=== PATIENT | female | born 1950 | race Caucasian/White ===

== ENCOUNTER 2017-01-24 09:15 | Emergency (ER) | payer MEDICARE, OTHER ==
--- NOTE | ~2017-01-24 | ER ---
PATIENT'S NAME: SOLO MAGANA [facility] AGE: 66 Y [address] ROOM: [place] [address] LOCATION: [facility] ADMIT DATE: 01/24/2017 ER/Outpatient Report DISCHARGE DATE: 01/24/2017 FAMILY PHYSICIAN: Perez Nieto MD ATTENDING PHYSICIAN: Curt Carrillo Time of Arrival: 0915 hours. Time of Evaluation: 0920 hours. CHIEF COMPLAINT: Rash. HISTORY OF PRESENT ILLNESS: The patient is a 66-year-old female who presents to the emergency department today with chief complaint of rash. She reports this started 1 day prior to arrival in both of her arms. She denies any fevers or chills. No nausea or vomiting. No diarrhea or constipation. No chest pain. No shortness of breath. She denies any new soaps or detergents. Denies any other exposures. PAST MEDICAL HISTORY: Hypertension, hypothyroid. PAST SURGICAL HISTORY: Hysterectomy. SOCIAL HISTORY: The patient denies any tobacco, alcohol, or illicit drug use. ALLERGIES: NO KNOWN DRUG ALLERGIES. MEDICATIONS: Please see list. PRIMARY CARE DOCTOR: Dr. Nieto. REVIEW OF SYSTEMS: All systems are reviewed by myself and are negative with the exception of those discussed in the HPI and past medical history. PHYSICAL EXAMINATION: VITAL SIGNS: Weight 119 kg, blood pressure 197/86, pulse 71, respiratory rate 16, temperature 96.7, oxygen saturation 96% on room air. GENERAL: The patient is a 66-year-old female, well developed, obese, in no PATIENT'S NAME: SOLO MAGANA [facility] AGE: 66 Y [address] ROOM: [place] [address] LOCATION: [facility] ADMIT DATE: 01/24/2017 ER/Outpatient Report DISCHARGE DATE: 01/24/2017 FAMILY PHYSICIAN: Perez Nieto MD ATTENDING PHYSICIAN: Curt Carrillo acute distress. HEENT: Normocephalic, atraumatic. Pupils are equal, round, and reactive to light. Oropharynx is clear. NECK: Supple. There is no nuchal rigidity. CARDIOVASCULAR: Regular rate and rhythm. No murmurs, rubs, or gallops. LUNGS: Clear to auscultation bilaterally. No wheezes, rales, or rhonchi. ABDOMEN: Soft, nontender, and nondistended. No rebound, rigidity, or guarding. MUSCULOSKELETAL: The patient moves all 4 extremities. SKIN: The patient has wheals and hives on bilateral upper extremities. They are blanching. There is no evidence of rash on palms or soles. LABORATORY DATA AND X-RAYS: None. IMPRESSION: 1. Allergic reaction with rash. 2. Initial visit. EMERGENCY DEPARTMENT COURSE: The patient was brought back to the examination room. Seen and evaluated by myself. History and physical was performed as described above. I have discussed the results of history and physical with the patient. The patient was given 125 mg of Solu-Medrol IM as well as 50 mg of Benadryl IM. She is observed here in the emergency department. Her symptoms have improved. I have discussed following up with the patient's primary care doctor in 2 to 3 days for re-evaluation. I have written a prescription for prednisone for home. I have discussed return to care instructions including worsening symptoms or any other concerns to return to the emergency department as soon as possible. The patient is agreeable without further questions. DISPOSITION: The patient discharged home in good condition. DO GERALD ORTIZ/celia /[id number] d: 01/24/175 t: 01/27/17 0652, OUTPATIENT REPORT
== END 2017-01-24 10:33 | disposition disaster alternative care site (69) ==
LOC: GMED 09:15
DX: T78.40XA Allergy, unspecified, initial encounter (principal); I10 Essential (primary) hypertension; E03.9 Hypothyroidism, unspecified; E66.9 Obesity, unspecified; Z90.710 Acquired absence of both cervix and uterus; Z79.899 Other long term (current) drug therapy
CPT/HCPCS: J1200; J2930

== ENCOUNTER 2017-03-19 19:27 | Observation (INO) | payer MEDICARE, OTHER ==
[~2017-03-19] VITALS: Ht 157.5 cm; Wt 125.2 kg
--- NOTE | ~2017-03-19 | DS ---
PATIENT'S NAME: SOLO MAGANA [facility] AGE: 66 Y [address] ROOM: [place] [id number] LOCATION: [facility] ADMIT DATE: 03/19/2017 Discharge Summary DISCHARGE DATE: 03/21/2017 FAMILY PHYSICIAN: Perez Nieto MD ATTENDING PHYSICIAN: Eloy New V PRIMARY DIAGNOSES: 1. Mechanical fall. 2. Proximal right humerus fracture. 3. Right knee medial collateral ligament sprain. 4. Essential hypertension. 5. Hypothyroidism. 6. Morbid obesity. OPERATIONS/PROCEDURES: None. HISTORY OF PRESENTING ILLNESS/REASON FOR ADMISSION: Please refer to the H and P dictated on 03/19/2017. HOSPITAL COURSE: The patient was admitted to the hospital as noted above with a presumptive diagnosis of right humerus fracture after a fall. She was seen and evaluated in the emergency room, and Orthopedics consultation was requested. Subsequently, she was admitted to the hospitalist service. Orthopedics was consulted after she arrived to the floor. Pain control was obtained with oral Percocet. She was placed into a right shoulder immobilizer and tolerated that well. She was hemodynamically stable over the course of her hospital stay. Dr. Inman did ultimately arrive and evaluate the patient and recommended nonoperative management. The patient received physical therapy, and by the third day of her hospital stay, it was felt she would be stable enough for discharge to home with plans for close clinical followup with her primary care provider, Dr. Nieto, and outpatient followup with Orthopedic Surgery. DISCHARGE INSTRUCTIONS: DIET: Regular as tolerated. ACTIVITY: As tolerated. Observe strict fall precautions. She will have the right arm splint and coaptation splint in place at all times. MEDICATIONS: 1. Enalapril 20 mg p.o. daily. 2. Colace 100 mg p.o. t.i.d. PATIENT'S NAME: SOLO MAGANA [facility] AGE: 66 Y [address] ROOM: [address] [address] LOCATION: [facility] ADMIT DATE: 03/19/2017 Discharge Summary DISCHARGE DATE: 03/21/2017 FAMILY PHYSICIAN: Perez Nieto MD ATTENDING PHYSICIAN: Eloy New V 3. MiraLAX 17 g p.o. daily. 4. Senna 2 tablets p.o. q.h.s. 5. Levothyroxine 137 mcg p.o. daily. 6. Percocet 5/325 one to two tabs p.o. q.4 hours p.r.n. pain. FOLLOWUP: She will follow up with Dr. Nieto in 3 to 5 days. She will follow up with Dr. Inman at the Orthopedics office in 1 week. She will have outpatient physical therapy. CONDITION ON DISCHARGE: Good. Total time spent on discharge process was 35 minutes. MD VIRAL TAYLOR/celia /[id number] d: 03/22/17 0328 t: 03/24/17 1433, DISCHARGE SUMMARY
--- NOTE | ~2017-03-19 | CON ---
PATIENT'S NAME: SOLO MAGANA [facility] AGE: 66 Y [address] ROOM: [place] [address] LOCATION: [facility] ADMIT DATE: 03/19/2017 Consultation DISCHARGE DATE: FAMILY PHYSICIAN: ALIYA ALMANZAR MD ATTENDING PHYSICIAN: MARCELINO JOYCE V REFERRING PHYSICIAN: STEVE CANO DO CHIEF COMPLAINT: 1. Right shoulder pain. 2. Right knee pain. HISTORY OF PRESENT ILLNESS: Solo is a 66-year-old female who had a mechanical fall after tripping in a hole, injuring her right proximal humerus and right knee. She was seen emergency room and evaluated found to have uncontrolled hypertension. PAST MEDICAL HISTORY: Reviewed and includes essential hypertension, hypothyroidism. SOCIAL HISTORY: No tobacco, alcohol, or recreational drugs. CURRENT MEDICATIONS: Reviewed, ADRY inhibitor and Synthroid. FAMILY HISTORY: Noncontributory. REVIEW OF SYSTEMS: Constipation. PHYSICAL EXAMINATION: GENERAL: The patient is alert and oriented x3. No acute distress. HEENT: Normocephalic, atraumatic. NECK: Supple. Trachea midline. VITAL SIGNS: Blood pressure has been elevated. Currently monitored by the hospitalist. Heart rates in the 70s, respiratory rate 18, temp afebrile, sat 94% on room air. EXTREMITIES: She is sitting comfortably in a chair with family at the bedside. She has normal sensation upon palpation in the axillary, median, radial, and ulnar nerve distribution. She is in a coaptation splint. To her right upper extremity, there are no open lesions or wounds or evidence open fracture. There is obvious swelling hematoma as can be expected. Her BMI is elevated. She has history of chronic bilateral knee pain. Using a walker and a wheelchair for long distances. She has seen her primary care and had injections and treatment for arthritis and told she may need knee PATIENT'S NAME: SOLO MAGANA [facility] AGE: 66 Y [address] ROOM: [place] [address] LOCATION: [facility] ADMIT DATE: 03/19/2017 Consultation DISCHARGE DATE: FAMILY PHYSICIAN: ALIYA ALMANZAR MD ATTENDING PHYSICIAN: MARCELINO JOYCE V replacements. On exam of her right knee, she has tenderness over MCL. With grade 1 sprain of the MCL. She has intact ligament with varus stressing. There is no large knee effusion. There are no abrasions. ABDOMEN: Soft. Obese. Nontender. She is tolerating p.o. She moves her left upper extremity, left lower extremity and right lower extremity at the ankle, knee, and hips without pain, other than the right MCL. IMPRESSION: 1. Mechanical fall with right proximal humerus fracture. X-ray show that is an acceptable alignment should heal without surgical intervention. We discussed the risks, benefits, treatment options with surgical versus nonsurgical. The union rate is not much better with surgery which can invite infection and neurovascular injury. She understands if the bone becomes displaced further, we may change our recommendation from nonoperative to operative. 2. Medial collateral ligament sprain. Recommend T scope brace. She may be weightbearing as tolerated with ambulation and non-weightbearing obviously with the right upper extremity. She will keep her coaptation splint in place. She understands she will develop some swelling, stiffness at the shoulder, elbow, and wrist. She will be continued to monitor for her medical comorbidities with pain control, hypertension, hypothyroidism by the hospitalist. Once she has found p.o. pain control adequate and meet short-term goals safely, she may be discharged home. She has a daughter coming from [place] who will be 29/03 to assist her. I will see her in the office in 1 week with repeat x-rays. STEVE CANO DO PH/modl /[id number] d: 03/20/17 1855 t: 03/29/17 1453, CONSULTATION REPORT
--- NOTE | ~2017-03-19 | HP ---
PATIENT'S NAME: SOLO MAGANA [facility] AGE: 66 Y [address] ROOM: [place] [address] LOCATION: [facility] ADMIT DATE: 03/19/2017 History & Physical DISCHARGE DATE: FAMILY PHYSICIAN: ALIYA ALMANZAR MD ATTENDING PHYSICIAN: MARCELINO JOYCE V DATE OF SERVICE: CHIEF COMPLAINT: Mechanical fall. HISTORY OF PRESENT ILLNESS: The patient is a 66-year-old female with a past medical history of hypothyroidism and essential hypertension, who sustained a mechanical fall at her home earlier today. She was taken to the ER where she was found to have a right proximal humerus fracture. The patient was in significant amount of pain, which improved with Dilaudid. She was also quite hypertensive with systolics over 200s. The patient will be seen by Orthopedics in the morning, and an observation/pain control admission was requested. At this point, the patient still reports considerable amount of pain. She denies any shortness of breath, nausea, vomiting, palpitations, or diaphoresis. Her fall was purely mechanical. REVIEW OF SYSTEMS: All systems have been reviewed and are negative aside from pertinent positives mentioned above. PAST MEDICAL HISTORY: 1. Essential hypertension. 2. Hypothyroidism. SOCIAL HISTORY: The patient has a very distant and non-pertinent history of tobacco use. No other ongoing toxic habits. CURRENT MEDICATIONS: 1. ADRY inhibitor. 2. Synthroid. FAMILY HISTORY: Reviewed and is noncontributory due to known underlying etiology for her presentation. PHYSICAL EXAMINATION: PATIENT'S NAME: SOLO MAGANA [facility] AGE: 66 Y [address] ROOM: [place] [address] LOCATION: [facility] ADMIT DATE: 03/19/2017 History & Physical DISCHARGE DATE: FAMILY PHYSICIAN: ALIYA ALMANZAR MD ATTENDING PHYSICIAN: MARCELINO JOYCE V VITAL SIGNS: At this point, her blood pressure is 185/84, heart rate is 74, saturating 95% on 2 L nasal cannula, afebrile, respirations are 16. GENERAL: A morbidly obese, middle-aged female, in no acute distress. NEUROLOGIC: Nonfocal. EYES: Show pupils are equal and reactive to light. LYMPHATIC: Shows no cervical lymphadenopathy. ENDOCRINE: Shows no thyromegaly. LUNGS: Clear to auscultation. HEART: Rate is regular. No appreciable murmurs, gallops, or rubs. GI: Abdomen is soft, nontender, nondistended. : No costovertebral angle tenderness. VASCULAR: 2+ pedal pulses. MUSCULOSKELETAL: Deferred. SKIN: Warm and dry. PSYCHIATRIC: Appropriate mood, cognition, affect. DIAGNOSTIC DATA: Review of studies show a right shoulder x-ray demonstrating proximal right humerus fracture. Chest x-ray shows diminished inspiratory effort with crowding of lung diamond. Lab results are unremarkable. ASSESSMENT AND PLAN: This is a 66-year-old female, who is admitted for pain control and blood pressure control. Individual problems to be addressed: 1. Pain control. We will provide the patient with morphine for severe pain and Percocet for moderate pain. We will also provide her with a bowel regimen given high opioid dosage. 2. Accelerated hypertension. We will restart her ADRY inhibitors and add p.r.n. hydralazine if her blood pressure does not improve with pain control. 3. Hypothyroidism. We will continue her on Synthroid. 4. Humerus fracture. The patient will be seen by Dr. Inman in Orthopedics in the morning. 5. Additional management will depend on clinical course. Time dedicated to the patient's encounter is 25 minutes. MD CASANDRA SCHULZ/celia /[id number] D: [id number] T: [id number] HISTORY & PHYSICAL
--- NOTE | ~2017-03-19 | ER ---
PATIENT'S NAME: SOLO ADEN [facility] AGE: 66 Y [address] ROOM: [place] [address] LOCATION: [facility] ADMIT DATE: 03/19/2017 ER/Outpatient Report DISCHARGE DATE: FAMILY PHYSICIAN: ALIYA ALMANZAR MD ATTENDING PHYSICIAN: MARCELINO JOYCE V CHIEF COMPLAINT: Fall. HISTORY OF PRESENT ILLNESS: Ms. Aden was walking through yard and inadvertently fell in a hole approximately 3 feet deep. She fell slightly on the right side. She had significant pain in her right shoulder and right knee region. She has been nonambulatory. She received fentanyl prior to arrival by EMS. She states there are no other acute issues. She denies loss of consciousness, but has diffuse pain everywhere in her back. No other acute issues at this time. The onset was approximately 1 hour prior to arrival. PAST MEDICAL HISTORY: Documented on the record and reviewed by me. SOCIAL HISTORY: Documented on the record and reviewed by me. MEDICATIONS: Documented on the record and reviewed by me. ALLERGIES: DOCUMENTED ON THE RECORD AND REVIEWED BY ME. REVIEW OF SYSTEMS: All systems reviewed and negative except as noted in the HPI. PHYSICAL EXAMINATION: VITAL SIGNS: Blood pressure 170/74, pulse 75, respiratory rate 22, temperature 98.9, SpO2 is 95% on room air. Pain is rated at 10/10. GENERAL: Age appropriate female, in obvious pain. No respiratory distress. Recumbent on a backboard without a C-collar. NEURO: The patient is awake and alert. GCS 15. Difficulty moving right upper extremity secondary to pain, otherwise neurovascularly intact. No focal deficits otherwise. HEENT: Normocephalic, atraumatic. Eyes are PERRL. Oropharynx clear. NECK: Supple anteriorly. Trachea is midline. CHEST: Heart is regular rate and rhythm. Tenderness in the right shoulder region. Poorly localizable. PATIENT'S NAME: SOLO ADEN [facility] AGE: 66 Y [address] ROOM: [place] [address] LOCATION: [facility] ADMIT DATE: 03/19/2017 ER/Outpatient Report DISCHARGE DATE: FAMILY PHYSICIAN: ALIYA ALMANZAR MD ATTENDING PHYSICIAN: MARCELINO JOYCE V LUNGS: Clear to auscultation bilateral. No rhonchi, wheezes, or rales. ABDOMEN: Obese, soft, nontender, nondistended. No masses, rebound or guarding. BACK: Notable for diffuse spinal and paraspinal tenderness. No focal findings. The patient has strong gluteal squeeze. No abrasions or contusions appreciated. EXTREMITIES: Right upper extremity is exquisitely tender in the region of the proximal humerus. The patient is minimally able to comply with instruction to activate the deltoid likely secondary to pain. It appears deltoid does fire. No obvious deformities in the arm, otherwise neurovascularly intact. No pain with palpation of the distal humerus, elbow, forearm, wrist or hand. The right lower extremity is notable for some tenderness over the anteromedial knee particularly distally. No appreciated joint effusion. No patellar subluxation. No tenderness at the joint line. Pain limits the intensive examination, but leg is otherwise neurovascularly intact. Body habitus makes exam very difficult. No obvious laxity. Left lower extremity and left upper extremities unremarkable. SKIN: Appears to be grossly intact. LABORATORY DATA AND X-RAYS: Head CT and spinal CTs are unremarkable. Plain films of the right shoulder reveal a subtrochanteric fracture. Knee films are unremarkable. Labs: CMS without appreciable abnormality other than a glucose of 125. Creatinine is 0.9. CMS with no elevation of white count. Hemoglobin and platelets within normal limits. INR is 1. IMPRESSION: 1. Mechanical fall. 2. Right proximal humerus fracture below the surgical neck. 3. Contusion to the right knee. 4. Inability to ambulate. EMERGENCY DEPARTMENT COURSE: The patient was seen and evaluated. She is given a trauma evaluation from physical exam standpoint. Imaging as warranted and noted above. With her spine cleared, we were able to sit her up. We were able to immobilize her neck as best as possible with towel rolls secondary to the patient's body habitus. We could not fit a C-collar on her. She was feeling much better. Dilaudid controlled her pain. I was able to apply a coaptation splint to the right arm and put her in a shoulder immobilizer. She was feeling much better at that time. Blood pressures have been hypertensive, but improved markedly when she was able to relax. I discussed the case with Dr. Inman, on-call orthopedist, and he will be willing to see her in the hospital if needed, otherwise close followup. The patient requires a cane to ambulate and has PATIENT'S NAME: SOLO ADEN [facility] AGE: 66 Y [address] ROOM: [id number] [place] [id number] LOCATION: [facility] ADMIT DATE: 03/19/2017 ER/Outpatient Report DISCHARGE DATE: FAMILY PHYSICIAN: ALIYA ALMANZAR MD ATTENDING PHYSICIAN: MARCELINO JOYCE V multiple stairs at home and currently cannot stand secondary to pain and contusions and would not be stable using a cane with only one arm. For these reasons, we will admit her to the Hospitalist Service for observation in the setting of new fracture and inability to safely ambulate and navigate her home. MD SHALOM DON/celia /[id number] d: 03/20/17 0648 t: 03/23/17 1245, OUTPATIENT REPORT
[2017-03-19 20:19] LABS: BASOPHIL % 0.3 %; EOSINOPHIL # 0.1 K/uL (0.0-0.5); EOSINOPHIL % 1.8 %; HEMATOCRIT 37.4 % (33.0-46.0); HEMOGLOBIN 12.2 g/dL (10.0-15.0); IMMATURE GRANULOCYTE # 0.1 K/uL (0.0-0.3); IMMATURE GRANULOCYTE % 0.8 %; LYMPHOCYTE # 1.3 K/uL (0.8-4.0); LYMPHOCYTE % 16.5 %; MCH 27.5 pg (27.0-34.0); MCHC 32.6 gm/dL (32.0-36.5); MCV 84.2 fl (83.0-98.0); MONOCYTE # 0.4 K/uL (0.0-1.0); MONOCYTE % 5.5 %; MPV 9.7 fl (9.4-12.4); NEUTROPHIL # (ANC) 5.8 K/uL (1.8-7.8); NEUTROPHIL % 75.1 %; NRBC % 0 /100WBC (0-0.00); PLATELET COUNT 183 K/uL (150-450); RBC 4.44 M/uL (3.50-5.50); RDW-CV 14.2 % (11.9-14.6); WBC 7.7 K/uL (4.0-11.0)
[2017-03-19 20:29] LABS: INR - (THERAPEUTIC) 1.02 (0.92-1.07); PROTIME 10.7 SECONDS (9.8-11.4); PTT 27 SECONDS (25-32)
[2017-03-19 20:39] LABS: ALBUMIN 3.4 gm/dL (3.5-5.0); ANION GAP 12.9 (10.0-19.0); CALCIUM 8.3 mg/dL (8.5-10.5); CREATININE 0.9 mg/dL (0.5-1.1); POTASSIUM 3.9 mMol/L (3.7-5.1); TOTAL BILIRUBIN 0.4 mg/dL (0.0-1.5); TOTAL PROTEIN 6.7 g/dL (6.0-8.4)
[2017-03-20] MEDS ORDERED: VASOTEC20 MG PO (01:09)
[2017-03-20] MEDS ORDERED: LEVOTHROID (S137 MCG PO (01:09)
--- NOTE | 2017-03-20 04:30 | NUR ---
Patient to ER per EMS after falling in back yard. Fracture to right humerus. Hypertensive on admit. Pressures 180/80s on arrival to PCU. Hydralizine given. MSU/3N status. Immobilizer to right arm/shoulder. Percocet given for discomfort with relief noted. Patient up to bathroom and chair with 1-2 assist. at bedside.
--- NOTE | 2017-03-20 17:30 | NUR ---
Significant Event: VSS AND RA. 2 TABS PERCOCET AT 0730, 1300, AND [address]IN CONTROL. DR. CANO CONSULTED AND UP TO SEE THIS AFTERNOON; TO CONTINUE WITH RT)ARM SLING AND IMMOBILIZER & ORDER FOR RT)KNEE MCL BRACE-RN CLINICIAN REP UP TO FIT AND PLACE. VOIDS WITH ADEQUATE UOP. ENCOURAGED IS. UP WITH 1A. REPOSITIONED Q2H. Follow up: CONTINUE PLAN OF CARE; PAIN CONTROL.
--- NOTE | 2017-03-21 05:29 | NUR ---
Significant Event: PERCOCET 2 TABS X2 FOR PAIN. UP WITH ASSIST BY FAMILY TO BR. ICE TO SHOULDER AND KNEE NEEDED. DID C/O R) WRIST PAIN. DID REPOSITION IT SHE STATED IT FELT A LITTLE BETTER. REMAINS ON ROOM AIR. Follow up:
[2017-03-21] MEDS ORDERED: COLACE100 MG PO (13:37)
[2017-03-21] MEDS ORDERED: MIRALAX17 GM PO (13:39)
[2017-03-21] MEDS ORDERED: SENNALAX-S TAB1 EACH PO (13:41)
[2017-03-21] MEDS ORDERED: PERCOCET 5-3251 EACH PO (13:44)
--- NOTE | 2017-03-21 15:32 | NUR ---
Significant Event:VSS.RA.PERCOCET GIVEN X2 THIS SHIFT. DISCHARGED, BUT PATIENT STATED"NOT READY, MAYBE THE END OF THIS AFTERNOON SHE WILL FEEL BETTER TO GO HOME". AWARE.RT ARM WRAPPED ON A SLING. PATIENT NAUSEATED THIS AM. ZOFRAN GIVEN WITH RELIEF. UP TO THE BATHROOM WITH STAND BY ASSIST. Follow up:WILL CONTINUE TO MONITOR PER PLAN OF CARE.
--- NOTE | 2017-03-21 16:36 | NUR ---
ORDERS RECEIVED TO DISCHARGE PATIENT HOME. TELE MONITOR, AND IV DC'D. DISCHARGE INSTRUCTIONS EXPLAINNED AND GIVEN TO PATIENT, AND . VERBALIZED UNDERSTANDING. TAKEN DOWNSTAIRS PER WHEELCHAIR BY PRIMARY RN.
== END 2017-03-21 16:45 | disposition disaster alternative care site (69) ==
LOC: GACC 19:27 → GPCU 23:32
PROVIDERS: Emergency Medicine; ADMIT Internal Medicine
DX: S42.291A Other displaced fracture of upper end of right humerus, initial encounter for closed fracture (principal); S83.411A Sprain of medial collateral ligament of right knee, initial encounter; I10 Essential (primary) hypertension; E03.9 Hypothyroidism, unspecified; M48.06 Spinal stenosis, lumbar region; E66.01 Morbid (severe) obesity due to excess calories; Z68.43 Body mass index [BMI] 50.0-59.9, adult; Z79.899 Other long term (current) drug therapy; W17.2XXA Fall into hole, initial encounter; Y92.009 Unspecified place in unspecified non-institutional (private) residence as the place of occurrence of the external cause
CPT/HCPCS: G0378; G8978; G8979; G8980; G8987; G8988; G8989; J0360; J1170; J2405

== ENCOUNTER → 2017-03-19 | Outpatient (CLI) | payer MEDICARE, OTHER ==
[~2017-03-19] MED LIST: COLACE100 MG PO; LEVOTHROID (S137 MCG PO; MIRALAX17 GM PO; PERCOCET 5-3251 EACH PO; SENNALAX-S TAB1 EACH PO; VASOTEC20 MG PO
== END | disposition disaster alternative care site (69) ==
LOC: GAMB 18:52
DX: M25.511 Pain in right shoulder (principal); M25.561 Pain in right knee; M79.661 Pain in right lower leg